=== PATIENT | female | born 1950 | race Caucasian/White ===

== ENCOUNTER 2020-06-10 12:58 | Emergency (ER) | payer MEDICARE, OTHER ==
[~2020-06-10] VITALS: Ht 152.4 cm; Wt 81.6 kg
[2020-06-10 13:33] VITALS: BP 138/67
[2020-06-10] MEDS ORDERED: ACETAMINOPHEN 325 MG TABLET ONE (13:41)
[2020-06-10] MEDS ORDERED: ACETAMINOPHEN 325 MG TABLET PO ONE (14:00)
--- NOTE | 2020-06-10 14:15 | NUR ---
COVID SWAB DONE AND SENT TO LAB
--- NOTE | 2020-06-10 14:37 | NUR ---
Patient discharged to home in stable condition. Written and verbal after care instructions given. Patient verbalizes understanding of instruction. Pt ambulatory with a steady gait
--- NOTE | 2020-06-11 20:44 | NUR ---
LAB CALLED REGARDING POSITIVE COVID RESULT
== END 2020-06-10 14:32 | disposition home or self-care (01) ==
LOC: ER 13:02
DX: U07.1 COVID-19 (principal); J12.89 Other viral pneumonia
CPT/HCPCS: 71045-TC; C9803; U0003